=== PATIENT | male | born 1955 | race Caucasian/White ===

== ENCOUNTER → 2019-09-23 08:06 | Outpatient (POV) | payer BC, SELFPAY ==
[2019-09-23 08:36] VITALS: BP 135/88; PULSE 78; RESP 18; O2SAT 98; BMI 25.1
--- NOTE | 2019-09-23 09:04 | HMH.PMCON ---
Assessment and Plan (1) Postherpetic neuralgia Current visit: Yes Status: Chronic Category: Medical Code(s): B02.29 - Other postherpetic nervous system involvement (2) Postherpetic polyneuropathy Current visit: Yes Status: Acute Category: Medical Code(s): B02.23 - Postherpetic polyneuropathy - Assessment and plan all Dx Assessment and Plan for all problems:: We will stop the patient's gabapentin. We will start him on pregabalin 75 mg 1 tablet p.o. twice daily. We will also schedule him for a thoracic epidural at T4-T5. He is not on any anticoagulation therapy. We will see him back in the clinic after his injection to reassess his symptoms. He has been instructed to contact the clinic if he has any concerns before his next appointment. The patient and I specifically discussed risk factors for COVID19. These risks include, but are not limited to age greater than 60, heart or lung disease, diabetes, immunosuppression, and travel. We also discussed NSAIDs may worsen COVID19 infection or symptoms. Patient should not use NSAIDs to treat COVID19 signs or symptoms. Patient was also informed that any type of corticosteroid of any form (oral or injection) will decrease the patient's immune system response and may increase the likelihood of COVID19 infection and symptoms. Dr. Hensley has reviewed this note and agrees with this plan of care. This note was dictated using voice recognition software and make contain errors or omissions. HPI - Data of Consult Patient: new to practice Consult date: 09/23/19 Requesting Physician: Selena Gan APRN Primary Care Provider: Bill Henning MD - Consult Narrative Reason for consult: Postherpetic neuralgia, radicular pain History of present illness: Mr. Mclain is a 64 year old male presents today today for consultation for postsurgical pain and postherpetic neuralgia. Patient has had longstanding history of comorbidities. He does report to have a history of esophageal cancer for which he has been followed with [facility]. Patient did undergo surgical intervention at [facility] and he does report that postoperative he developed severe she for T5 and T6 pain on his right anterior chest wall. He says that approximately a month ago he developed severe pain on the left side in the same area. Patient did report to have had shingles at that time. Did complete his antiviral medication. He is currently on gabapentin 300 mg 1 tablet p.o. 4 times daily but he is unable to tolerate the medication. He says that it makes him confused and he does not like the way he feels when taking the medication. He is here today to discuss possible options for pain relief. CC: Selena Gan APRN [facility] History I have reviewed the patient's past medical history: Yes Medical History: Reports:: Diabetes Mellitus Type 2, Hyperlipidemia, Hypertension Denies:: Cancer, Diabetes Mellitus Type 1, Internal Pacemaker, Lung Disease, MRSA, Seizures *Have you ever received a pneumonia vaccine?: Yes *Have you received a flu vaccine this season?: Yes Other Medical History: Reports: Anemia, Arthritis Other Surgeries: Yes: Cholecystectomy. No: Pacemaker Amputation: No Fractures: No - *Social History Smoking Status: Never smoker Tobacco Type: cigarettes Alcohol Intake: never Alcohol Intake Frequency:: other Substance Use Type: denies use *Occupational Status:: other Housing: house Household Members: other *Travel in the last 8 weeks: None Family Hx:: Unable to obtain Review of Systems - Review of Systems Review of Systems General: No recent weight changes, no fever, no sleep disturbances Respiratory: No cough, no shortness of air, no recurring pulmonary infections Cardiovascular/peripheral vascular: No chest pain, no palpitations, no edema, no shortness of breath Gastrointestinal: No new onset incontinence, normal bowel movements reported Genitourinary: No new onset incontinence
== END ==
PROVIDERS: PCP Emergency Medicine; Visit Provider Clinical Nurse Specialist Family Health
DX: B02.23 Postherpetic polyneuropathy (principal)
CPT/HCPCS: 99202

== ENCOUNTER 2019-09-25 14:00 | Emergency (ER) | payer BC, SELFPAY ==
[2019-09-25] VITALS (8 sets, daily range): BP systolic 132–164; BP diastolic 85–101; PULSE 71–77; RESP 15–18; TEMP 36.7; O2SAT 97–99; BMI 24.3
[2019-09-25 14:35] LABS: POC Glucose,Bedside 161 (70-110)
--- NOTE | 2019-09-25 14:36 | ECG_ITS ---
APPROVED REPORT Exam: Resting ECG HR:70 bpm ECG Measurements Heart Rate 70 AXES SC 138 P 53 QRSd 84 QRS -17 QT 408 T 43 QTc 440 <Conclusion> Normal sinus rhythm Incomplete RBBB Leftward axis Abnormal ECG Electronically signed by : Yahir Joseph, 09/27/2019 09:10:34
--- NOTE | 2019-09-25 14:41 | HMH.EDGENADL ---
ED Disposition Clinical Impression: Brain metastasis, Esophageal adenocarcinoma Disposition: Xfer Short-Term Hosp Condition on Discharge: Fair Referrals: Bill Henning MD [Primary Care Provider] - - Critical Care Critical Care Time: Yes Attestation: On 09/25/19, the high probability of a clinically significant, sudden or life threatening deterioration of the following system(s) required my full and direct attention, intervention and personal management. The time I documented below is in addition to time spent performing reported procedures but includes the following listed in this critical care notation. Total Critical Care Time: 30 Vital system(s) involved:: Central Nervous System My critical care processes included: Assessment & monitoring of V/S, Initial and Re-exams, Data Review/Interpretation, Coordinating Care, Medication Orders and management, Documentation Medical Decision Making - Medical Records Medical records reviewed: Yes: I reviewed the patient's medical records. MR Comment: Reviewed records from [facility] on the portal. Had CT scan of chest and abdomen August 10 that were unremarkable. - Jose Inquiry Pt receiving controlled substance: No Vital Signs: 09/25/19 14:37 Pulse Rate [Radial] 72 Respiratory Rate 18 Blood Pressure [Right Arm] 154/92 H Blood Pressure Mean [Right Arm] 112 Blood Pressure Source [Right Arm] Automatic Cuff Blood Pressure Position [Right Arm] Supine 02 Sat by Pulse Oximetry 99 Oxygen Delivery Method Room Air - Lab Data Lab results reviewed: Yes: I reviewed the patient's lab results. Lab Results 09/25/19 14:33: POC Glucose 161 H 09/25/19 14:40: WBC 6.2, RBC 5.69, Hgb 15.1, Hct 44.2, MCV 77.7 L, MCH 26.6 L, MCHC 34.2, RDW 15.6, Plt Count 247, MPV 8.9, Neut % (Auto) 73.1, Lymph % (Auto) 14.1, [place] % (Auto) 11.7 H, Eos % (Auto) 0.7, Baso % (Auto) 0.4, Neut # (Auto) 4.6, Lymph # (Auto) 0.9, [place] # (Auto) 0.7, Eos # (Auto) 0.1, Baso # (Auto) 0.0, ESR 8 09/25/19 14:40: Sodium 133 L, Potassium 4.1, Chloride 92 L, Carbon Dioxide 29, Anion Gap 16.1 H, BUN 13, Creatinine 1.00, Estimated Creat Clear 80, Estimated GFR 75, Est GFR ( Amer) 91, Glucose 180 H, Calcium 10.2, Total Bilirubin 1.8 H, AST 37, ALT 42, Alkaline Phosphatase 98, Troponin I < 0.01, C-Reactive Protein 28.9 H, Total Protein 7.8, Albumin 4.6, Globulin 3.2, Albumin/Globulin Ratio 1.4 09/25/19 14:40: Lactate 1.5 09/25/19 15:25: Urine Color Yellow, Urine Appearance Clear, Urine pH 6.0, Ur Specific [place] 1.020, Urine Protein Negative, Urine Glucose (UA) Negative, Urine Ketones Negative, Urine Blood Negative, Urine Nitrate Negative, Urine Bilirubin Negative, Urine Urobilinogen 0.2, Ur Leukocyte Esterase Negative, Urine RBC Occasional, Urine WBC 3-5, Ur Squamous Epith Cells Occasional, Urine Bacteria None Result diagrams: 09/25/19 14:40 09/25/19 14:40 Orders (Tests/Meds): ED MEDICATIONS Generic Name Dose Route Start Last Admin Trade Name Freq PRN Reason Stop Dose Admin Pantoprazole Sodium 40 mg 09/25/19 17:02 Protonix 40mg Vial IV 09/25/19 17:03 ONCE ONE Sodium Chloride 10 ml 09/25/19 17:02 Sodium Chloride 0.9% 10ml Vial IV 10/25/19 17:01 NEEDED PRN dilute protonix Discontinued Medications Generic Name Dose Route Start Last Admin Trade Name Freq PRN Reason Stop Dose Admin Dexamethasone Sodium Phosphate 10 mg 09/25/19 15:26 09/25/19 16:09 Decadron 4mg/Ml 1ml Vial IV 09/25/19 15:27 10 mg ONCE ONE Administration Sodium Chloride 1,000 ml 09/25/19 15:01 09/25/19 15:06 Sod Chlor 0.9% 1000ml Bag IV 09/25/19 15:02 1,000 ml BOLUS ONE Administration ORDERS Category Date Time Status Troponin I Q3H Lab 09/25/19 17:45 Ordered Troponin I Q3H Lab 09/25/19 20:45 Ordered Blood Culture Stat Micro 09/25/19 14:40 Received - Radiology Data #1 Image(s): Chest Image Reviewed: Yes I have reviewed radiologist's interpretation PRO
--- NOTE | 2019-09-25 14:42 | XR_ITS ---
PROCEDURE: XR CHEST PORTABLE Patient Age:64Y CLINICAL HISTORY: Altered mental status & chest pains-history of esophageal cancer 2019 with surgery to reconstruct. Nonsmoker. Has had chemotherapy and radiation. At times has sharp pains in the chest COMPARISON: CT CHEST W CON from 10/16/2018 CT ABDOMEN W CON from 10/16/2018 FINDINGS: Single AP view chest Comparison is made to 10/16/2018 CT chest The rather dense appearance at mediastinum seen on this frontal projection. This of I suspect in part reflects postsurgical changes at the mediastinum from the esophagus surgery. There is a tortuous descending aorta as well as probable hiatal hernia adding to the generous density retrocardiac region as well. The hilar regions appear stable unchanged. The chest wall appears satisfactory. No pleural effusion. No pneumothorax. But no focal pneumonia The heart is normal in size and there is normal pulmonary vascularity. Minimal linear scarring is seen at the periphery of the right On close inspection there is a small nodular density projected over the left anterior 5th rib end-measuring 5.5 mm.. Small, unimpressive. Could be merely nipple shadow although slightly lateral for such. The prior CT chest from 2019 showed some nonspecific lung nodules and scattered vague densities but none specifically in this region. If there is no recent CT chest/abdomen, would suggest such with patient follow-up. I presume the patient has had subsequent scans and followed by oncologist elsewhere. IMPRESSION: 1..No acute cardiopulmonary findings. 2..However there are abnormalities: --diffuse dense appearance of the mediastinum-likely reflects the esophageal abnormalities, and esophageal surgery changes; along with likely hiatal hernia shadow retrocardiac region inferiorly.. However would benefit from follow-up CT scan if none recently obtained to exclude any additional process or adenopathy -5.5 mm nodular density projected over anterior 5th left rib end.. Nonspecific. Question possible nipple shadow. ---Would encourage follow-up CT chest, &abdomen/pelvis in this patient in view of above findings and given the numerous prior abnormalities seen on 2019 CT chest/abdomen studies. (I suspect patient followed by oncologist, with CT scans at another facility in the interval) Dictated by: Ian Gupta MD 09/25/2019 15:53 Electronically signed by Ian Gupta MD in [place] 09/25/2019 15:53
--- NOTE | 2019-09-25 14:53 | CT_ITS ---
PROCEDURE: CT HEAD/BRAIN WO CON Patient Age:64Y CLINICAL INDICATION: AMS mental status changes, history of esophageal cancer COMPARISON: CT HEAD/BRAIN W CON from 09/25/2019 TECHNIQUE: No IV contrast Non contrast standard axial images were obtained. All CT scans at the facility use one or more dose reduction, viz: automated exposure control, ma/kV adjustment per patient size (including targeted exams where dose is matched to indication, i.e. head), or iterative reconstruction technique. FINDINGS: . abnormal increased white matter edema throughout the posterior right cerebral hemisphere. There appears to be mass effect with compression and partial obliteration of the simple horn and sulci with what believe is compression upon the atria of the right lateral ventricle. Appearance suggest a large underlying mass at the right occipital region measuring at least 3 cm transverse times estimated 4.5 cm AP. Scattered lucent areas here may likely reflect associated areas of necrosis along the anterior aspect of the solid mass at right occipital lobe. Patient would benefit from a CT with contrast at this time and likely a follow-up MRI with contrast and subsequently . The posterior fossa appears satisfactory and unremarkable otherwise. The ventricles normal size but the right ventricle slightly larger than left but Skull intact-scattered I believe arachnoid granulations are noted.. Nomastoid effusions. Mastoid air cells are well developed and clear. Middle ear clear. IAC's symmetric. Nosinus air-fluid level. Visualized portions of the paranasal sinuses and orbits unremarkable. IMPRESSION: Large metastatic lesion right occipital lobe, with notable associated vasogenic edema tracking through white matter tracks throughout the right posterior cerebral hemisphere. Mass effect here at the right occipital lobe and adjacent structures . CT brain with contrast recommended to further evaluate and better define this right occipital mass lesion Dictated by: Ian Gupta MD 09/25/2019 16:42 Electronically signed by Ian Gupta MD in [place] 09/25/2019 16:42
--- NOTE | 2019-09-25 14:59 | PC.NURSE ---
Pt to CT
[2019-09-25 15:04] LABS: Basophils % 0.4 % (0.1-2.0); Eosinophils # 0.1 K/mm3 (0.0-0.4); Eosinophils % 0.7 % (0.1-12.0); Hematocrit 44.2 % (42.0-52.0); Hemoglobin 15.1 g/dL (14.1-18.0); Lymphocytes # 0.9 K/mm3 (0.7-4.5); Lymphocytes % 14.1 % (10-50); Mean Corpuscular HGB Conc 34.2 g/dL (31.8-35.4); Mean Corpuscular Hemoglobin 26.6 pg (27.0-31.2); Mean Corpuscular Volume 77.7 fl (80-94); Mean Platelet Volume 8.9 fl (7.4-10.4); Monocytes # 0.7 K/mm3 (0.1-1.0); Monocytes % 11.7 % (1.7-9.3); Neutrophils # 4.6 K/mm3 (1.8-7.8); Neutrophils % 73.1 % (37.0-80.0); Platelet Count 247 K/mm3 (142-424); Red Blood Count 5.69 M/mm3 (4.60-6.20); Red Cell Distribution Width 15.6 % (11.5-17.5); White Blood Count 6.2 K/mm3 (4.8-10.8)
[2019-09-25 15:06] LABS: Chloride 92 mmol/L (98-107)
[2019-09-25 15:07] LABS: Potassium 4.1 mmoL/L (3.5-5.1); Sodium 133 mmol/L (136-145)
[2019-09-25 15:09] LABS: Alanine Aminotransferase 42 U/L (12-78); Alkaline Phosphatase 98 U/L (38-126); Aspartate Amino Transferase 37 U/L (17-59); Bilirubin,Total 1.8 mg/dl (0.2-1.3); Blood Urea Nitrogen 13 mg/dl (9-20); Creatinine Clearance Estimated 80 mL/min (50-200); Estimated Glomerular Filt Rate 75 ml/min (>60); GFR (African American) 91 ML/MIN (>60)
[2019-09-25 15:10] LABS: Albumin Level 4.6 g/dl (3.5-5.0); Albumin/Globulin Ratio 1.4 (1.1-1.8); Anion Gap 16.1 mEq/L (5-15); Calcium 10.2 mg/dl (8.4-10.2); Carbon Dioxide 29 mmol/L (22.0-30.0); Globulin 3.2 g/dL (1.3-3.2); Glucose 180 mg/dl (74-100); Total Protein,Serum 7.8 g/dl (6.3-8.2)
[2019-09-25 15:11] LABS: Lactic Acid 1.5 mmol/L (0.7-2.1)
[2019-09-25 15:15] LABS: C-Reactive Protein 28.9 mg/L (0-4)
--- NOTE | 2019-09-25 15:15 | PC.NURSE ---
Addendum entered by Lissa Lake RN 09/25/19 17:31: correction returned from CT Original Note: Pt to CT
--- NOTE | 2019-09-25 15:23 | CT_ITS ---
PROCEDURE: CT HEAD/BRAIN W CON Patient Age:64Y CLINICAL INDICATION: metastatic cancer COMPARISON: CT HEAD/BRAIN WO CON from 09/25/2019 TECHNIQUE: IV Contrast: 100ML OPITRAY [address] head,, followed by standard axial CT head images were both obtained. All CT scans at the facility use one or more dose reduction, viz: automated exposure control, ma/kV adjustment per patient size (including targeted exams where dose is matched to indication, i.e. head), or iterative reconstruction technique. FINDINGS: The patient has known cancer. There is a large enhancing metastatic deposit at right occipital lobe. This is nicely seen on sagittal reconstruction image 44 in addition to the axial images. This lesion measures the 4.6 cm oblique AP x 2.5 cm vertical times 3.2 cm transverse. There are low-density areas throughout this lesion most evident towards its anterior aspect. These low-density areas likely reflect areas of necrosis Of the more solid enhancing components tender reside more posteriorly. Rather round and an enhancing primarily solid mass abuts the falx just above the tentorium Generous surrounding vasogenic edema-seen throughout the posterior right cerebral hemisphere. The associated vasogenic edema surrounds the bicipital mass lesion and radiates the extending from into the posterior temporal lobe white matter and posterior parietal lobe white matter. There is regional mass effect most evident the posterior right cerebral hemisphere compression and loss of the sulci throughout posterior right cerebral hemisphere. The mass effect markedly compresses and obliterates right occipital horn; and there is mild compression upon the atria of the right lateral ventricle.. Scant compression upon the right aspect of the quadrigeminal cistern No significant shift of midline at the level of basal ganglia or thalamus. Only question perhaps subtle 1 mm shift of midline to the left at these levels-equivocal-. May merely be normal variation No intracranial hemorrhage... No subdural or extra-axial fluid collection is evident. Posterior fossa unremarkable. Skull intact-. most likely scattered arachnoid granulations accounting for scattered lucent foci along inner table of skull. Nomastoid effusions. Mastoid air cells are well developed and clear. Middle ear clear. IAC's symmetric. Visualized portions of the paranasal sinuses and orbits unremarkable. IMPRESSION: . Large enhancing metastatic lesion right occipital region measure over 4.6 cm x 3.5 cm transverse. Multiple areas of necrosis within this otherwise enhancing solid lesion. No hemorrhage . Regional mass effect with vasogenic edema surrounding lesion: Vasogenic white matter edema extends into posterior temporal and posterior parietal regions. The lesion and associated edema result in moderate mass effect throughout posterior right hemisphere.-which compresses/obliterates right occipital horn along and yields loss of sulci throughout posterior right cerebral hemisphere. (No significant midline shift more anteriorly. Perhaps only 1 mm shift to the left at the level of basal ganglia and thalamus) Dictated by: Ian Gupta MD 09/25/2019 16:33 Electronically signed by Ian Gupta MD in [place] 09/25/2019 16:33
[2019-09-25 15:26] LABS: Troponin I < 0.01 ng/ml (0.00-0.034)
[2019-09-25 15:28] LABS: Erythrocyte Sedimentation Rate 8 mm/hr (0-20)
[2019-09-25 15:35] LABS: Appearance,Urine CLEAR (Clear); Bilirubin,Urine Negative (Negative); Blood, Urine Negative (Negative); Color,Urine YELLOW (Yellow); Glucose,Urine (UA) Negative (Negative); Ketones,Urine Negative (Negative); Leukocyte Esterase,Urine Negative (Negative); Microscopic, Urine URINE MICROSCOPIC (MICROSCOPIC); Nitrate,Urine Negative (Negative); Protein,Urine Negative (Negative); Urobilinogen,Urine 0.2 EU/dl (0.2)
--- NOTE | 2019-09-25 15:35 | PC.NURSE ---
speaking to Dr Gupta r/t CT findings recommends CT head with contrast
[2019-09-25 15:40] LABS: RBC,Urine Occasional #/hpf (0-3); Squamous Epithelial Cell,Urine Occasional #/hpf (0-5)
--- NOTE | 2019-09-25 15:50 | PC.NURSE ---
Pt to CT again
--- NOTE | 2019-09-25 16:20 | PC.NURSE ---
Pt returned from CT
--- NOTE | 2019-09-25 16:49 | PC.NURSE ---
and pt speaking with dr Avalos related to CT scan.
--- NOTE | 2019-09-25 16:50 | PC.NURSE ---
Addendum entered by Lissa Lake RN 09/25/19 16:53: From MDs Original Note: speaking to Dr Wood
--- NOTE | 2019-09-25 16:54 | PC.NURSE ---
Dr Wood stated he wished pt to be transfered to , MD speaking to family now
--- NOTE | 2019-09-25 16:58 | PC.NURSE ---
speaking to the Neuro surgeon at
--- NOTE | 2019-09-25 17:00 | PC.NURSE ---
Dr De La O accepted transfer, states to call ED and will be an ED to ED transport
--- NOTE | 2019-09-25 17:04 | PC.NURSE ---
Report given to Chantell Choi RN at ED
--- NOTE | 2019-09-25 17:07 | PC.NURSE ---
[facility] notified of pt transfer stated they must wait until the ALS truck is [place] in the [place].
--- NOTE | 2019-09-25 22:57 | PC.NURSE ---
called and asked what meds patient was given while he was here.
== END 2019-09-25 18:21 | disposition short-term general hospital (02) ==
LOC: ER 14:04 → UTC 14:07 → ER 14:36
PROVIDERS: Nurse Practitioner; Emergency Provider Emergency Medicine; PCP Emergency Medicine
DX: C15.9 Malignant neoplasm of esophagus, unspecified (principal); C79.31 Secondary malignant neoplasm of brain; E78.5 Hyperlipidemia, unspecified; I10 Essential (primary) hypertension; E11.9 Type 2 diabetes mellitus without complications; Z90.49 Acquired absence of other specified parts of digestive tract; Z79.899 Other long term (current) drug therapy
CPT/HCPCS: 70450; 70460; 71045; 80053; 81001; 82962; 83605; 84484; 85025; 85651; 86140; 87040; 93005; 96365; 96375; 99284; 99285; J2405; Q9967

== ENCOUNTER 2019-10-23 14:19 | Emergency (ER) | payer BC, MEDICARE, SELFPAY ==
[2019-10-23 14:28] VITALS: BP 126/82; PULSE 78; RESP 16; TEMP 36.8; O2SAT 98; BMI 25.1
--- NOTE | 2019-10-23 14:35 | ECG_ITS ---
APPROVED REPORT Exam: Resting ECG HR:77 bpm ECG Measurements Heart Rate 77 AXES IN 126 P 34 QRSd 74 QRS -12 QT 388 T 46 QTc 439 <Conclusion> Normal sinus rhythm Normal ECG Electronically signed by : Bernabe Espinoza, 10/24/2019 06:03:30
--- NOTE | 2019-10-23 14:46 | XR_ITS ---
PROCEDURE: XR CHEST 2V CLINICAL HISTORY: SOA Shortness of air, soft Jewel cancer COMPARISON: CT CT CHEST W CON from 10/16/2018 FINDINGS: Normal heart size. Moderate-sized hiatal hernia is present. There is some mild mediastinal widening which is shown improvement compared to previous CT scan of 10/16/2018.. Postsurgical changes in the midlung on the right. There is some faint nodularity noted in the right lower lung zone and may be due to vascular and rib overlap. Cannot exclude developing nodule. Left lung is clear. No acute bony findings. No acute bony abnormalities. IMPRESSION: Postsurgical changes with nodular density overlying the right lower lobe which could be due to summation artifact or developing nodule. Chest CT may provide further evaluation. Dictated by: Ramin Chowdhury MD 10/23/2019 22:14 Ramin Chowdhury MD in [place] 10/23/2019 22:14
[2019-10-23 14:52] LABS: Basophils % 0.8 % (0.1-2.0); Eosinophils # 0.1 K/mm3 (0.0-0.4); Eosinophils % 3.6 % (0.1-12.0); Hematocrit 30.5 % (42.0-52.0); Hemoglobin 9.8 g/dL (14.1-18.0); Lymphocytes # 0.5 K/mm3 (0.7-4.5); Lymphocytes % 12.5 % (10-50); Mean Corpuscular Hemoglobin 26.8 pg (27.0-31.2); Mean Corpuscular Volume 83.7 fl (80-94); Mean Platelet Volume 9.3 fl (7.4-10.4); Monocytes # 0.2 K/mm3 (0.1-1.0); Monocytes % 6.4 % (1.7-9.3); Neutrophils # 2.7 K/mm3 (1.8-7.8); Neutrophils % 76.7 % (37.0-80.0); Platelet Count 159 K/mm3 (142-424); Red Blood Count 3.65 M/mm3 (4.60-6.20); Red Cell Distribution Width 18.1 % (11.5-17.5); White Blood Count 3.6 K/mm3 (4.8-10.8)
[2019-10-23 14:57] LABS: Alanine Aminotransferase 107 U/L (12-78); Albumin Level 3.4 g/dl (3.5-5.0); Albumin/Globulin Ratio 1.4 (1.1-1.8); Alkaline Phosphatase 117 U/L (38-126); Anion Gap 9.7 mEq/L (5-15); Aspartate Amino Transferase 73 U/L (17-59); Bilirubin,Total 0.5 mg/dl (0.2-1.3); Blood Urea Nitrogen 16 mg/dl (9-20); Calcium 8.7 mg/dl (8.4-10.2); Carbon Dioxide 30 mmol/L (22.0-30.0); Chloride 101 mmol/L (98-107); Creatinine Clearance Estimated 83 mL/min (50-200); Estimated Glomerular Filt Rate 113 ml/min (>60); GFR (African American) 137 ML/MIN (>60); Globulin 2.5 g/dL (1.3-3.2); Glucose 178 mg/dl (74-100); Potassium 3.7 mmoL/L (3.5-5.1); Sodium 137 mmol/L (136-145); Total Protein,Serum 5.9 g/dl (6.3-8.2)
[2019-10-23 15:07] LABS: NT Pro Brain Natriuretic Pep. 433 pg/mL (0-125)
[2019-10-23 15:09] LABS: D-Dimer 0.59 ug/mL (0.15-8.0)
[2019-10-23 15:20] VITALS: BP 109/75; PULSE 76; O2SAT 97
[2019-10-23 16:11] VITALS: BP 111/74; PULSE 74; O2SAT 97
--- NOTE | 2019-10-23 16:22 | HMH.EDGENADL ---
ED Disposition Clinical Impression: Swelling of lower extremity, Nutritional deficiency, Steroid long-term use, Orthopnea Disposition: Home, Self-Care Condition on Discharge: Fair Instructions: DI for Dependent Edema, DI for Peripheral Edema -- Bilateral Additional Instructions: You have been evaluated for lower extremity swelling. Please walk for exercise, use compression and elevate your legs when resting. Continue steroid taper. Use nutritional supplementation like boost. Follow-up with your primary care doctor in 1 to 2 days for symptom recheck. Return to the emergency department for any new or worsening symptoms. Referrals: Bill Henning MD [Primary Care Provider] - Time of Disposition: 16:43 - Critical Care Critical Care Time: No Attestation: On 10/23/19, the high probability of a clinically significant, sudden or life threatening deterioration of the following system(s) required my full and direct attention, intervention and personal management. The time I documented below is in addition to time spent performing reported procedures but includes the following listed in this critical care notation. Medical Decision Making - Medical Records Medical records reviewed: Yes: I reviewed the patient's medical records. - Jose Inquiry Pt receiving controlled substance: No Vital Signs: 10/23/19 14:28 10/23/19 15:20 10/23/19 16:11 Temperature 98.2 F Temperature Source Oral Pulse Rate Pulse Rate [Right] 78 76 74 Respiratory Rate 16 Blood Pressure Blood Pressure [Right Arm] 126/82 109/75 L 111/74 Blood Pressure Mean [Right Arm] 96 86 86 Blood Pressure Source Blood Pressure Source [Right Arm] Automatic Cuff Automatic Cuff Automatic Cuff Blood Pressure Position Blood Pressure Position [Right Arm] Sitting Supine Supine 02 Sat by Pulse Oximetry 98 97 97 Oxygen Delivery Method Room Air Room Air Room Air 10/23/19 16:56 Temperature 98.2 F Temperature Source Oral Pulse Rate 78 Pulse Rate [Right] Respiratory Rate 16 Blood Pressure 110/62 Blood Pressure [Right Arm] Blood Pressure Mean [Right Arm] Blood Pressure Source Automatic Cuff Blood Pressure Source [Right Arm] Blood Pressure Position Sitting Blood Pressure Position [Right Arm] 02 Sat by Pulse Oximetry Oxygen Delivery Method Room Air - Lab Data Lab Results 10/23/19 14:30: WBC 3.6 L, RBC 3.65 L, Hgb 9.8 L, Hct 30.5 L, MCV 83.7, MCH 26.8 L, MCHC 32.0, RDW 18.1 H, Plt Count 159, MPV 9.3, Neut % (Auto) 76.7, Lymph % (Auto) 12.5, [place] % (Auto) 6.4, Eos % (Auto) 3.6, Baso % (Auto) 0.8, Neut # (Auto) 2.7, Lymph # (Auto) 0.5 L, [place] # (Auto) 0.2, Eos # (Auto) 0.1, Baso # (Auto) 0.0 10/23/19 14:30: Sodium 137, Potassium 3.7, Chloride 101, Carbon Dioxide 30, Anion Gap 9.7, BUN 16, Creatinine 0.70, Estimated Creat Clear 83, Estimated GFR 113, Est GFR ( Amer) 137, Glucose 178 H, Calcium 8.7, Total Bilirubin 0.5, AST 73 H, ALT 107 H, Alkaline Phosphatase 117, NT-Pro-B Natriuret Pep 433 H, Total Protein 5.9 L, Albumin 3.4 L, Globulin 2.5, Albumin/Globulin Ratio 1.4 10/23/19 14:30: D-Dimer 0.59 Result diagrams: 10/23/19 14:30 10/23/19 14:30 Orders (Tests/Meds): ORDERS Category Date Time Status Chest XR 2 view (NOT portable) [XR chest 2V] Stat Exams 10/23/19 14:46 Taken Medical Decision Narrative: In summary this is a 64-year-old male on daily steroids after brain tumor resection presenting to the emergency department with dyspnea and lower extremity swelling. Patient is clinically stable on arrival. Oxygen saturations are appropriate on room air. Concern for steroid reaction, acute renal failure, fluid overload, CHF. Cannot exclude PE, given recent postop. Will obtain CBC, CMP, chest x-ray, EKG, BNP, d-dimer. Initial laboratory results are generally unremarkable. Slight anemia. Renal function adequate with creatinine of 0.70. BNP at 400, slightly elevated. D-dimer within normal limits. Doubt that this is DVT o
[2019-10-23 16:56] VITALS: BP 110/62; PULSE 78; RESP 16; TEMP 36.8; O2SAT 98
== END 2019-10-23 16:57 | disposition home or self-care (01) ==
PROVIDERS: Emergency Provider Emergency Medicine; PCP Emergency Medicine
DX: R06.01 Orthopnea (principal); C15.9 Malignant neoplasm of esophagus, unspecified; C79.31 Secondary malignant neoplasm of brain; E11.65 Type 2 diabetes mellitus with hyperglycemia; Z79.52 Long term (current) use of systemic steroids; E63.9 Nutritional deficiency, unspecified; E78.5 Hyperlipidemia, unspecified; I10 Essential (primary) hypertension; Z79.899 Other long term (current) drug therapy; Z79.4 Long term (current) use of insulin
CPT/HCPCS: 71046; 80053; 83880; 85025; 85378; 93005; 99284

== ENCOUNTER 2019-12-31 02:58 | Emergency (ER) | payer BC, MEDICARE, SELFPAY ==
[2019-12-31] VITALS (7 sets, daily range): BP systolic 129–157; BP diastolic 87–97; PULSE 82–91; RESP 16–20; TEMP 36.4; O2SAT 93–99; BMI 25.9
--- NOTE | 2019-12-31 03:40 | CT_ITS ---
PROCEDURE: CT ABDOMEN PELVIS WO CON CLINICAL INDICATION: flank pain Left flank pain COMPARISON: CT CT ABDOMEN W CON from 10/16/2018 TECHNIQUE: Axial images obtained with sagittal and coronal reformats. All CT scans at the facility use one or more dose reduction, viz: automated exposure control, ma/kV adjustment per patient size (including targeted exams where dose is matched to indication, i.e. head), or iterative reconstruction technique. FINDINGS: LOWER THORAX: There is a large hiatal hernia. There is trace right-sided effusion ABDOMEN & PELVIS: Prior cholecystectomy. The liver, spleen, adrenal glands, pancreas have an unremarkable appearance. There are punctate bilateral renal calculi. There is a 7 mm stone within the mid aspect of the left ureter at the L4 level causing mild left hydronephrosis and proximal hydroureter with minimal stranding of the left perinephric and periureteral fat. Faint increased density is present within the central mesenteric fat with scattered small mesenteric lymph nodes. Unremarkable appendix. No intestinal obstruction or free air. There is mild nonspecific thickening of the descending and sigmoid colon as well as the transverse colon which may be due to nondistention versus colitis. There are scattered colonic diverticula but no evidence of diverticulitis. There is mild degenerative disc disease in the lower thoracic spine and at the L5-S1 level. IMPRESSION: 1. 7 mm left mid ureteral stone with mild left hydroureteronephrosis. 2. Bilateral nephrolithiasis 3. Nonspecific thickening of the colon which could be due to nondistention or colitis. 4. Moderate-sized hiatal hernia with trace right-sided pleural effusion Dictated by: Ramin Chowdhury MD 12/31/2019 06:26 Ramin Chowdhury MD in [place] 12/31/2019 06:26
[2019-12-31 03:49] LABS: Basophils % 0.6 % (0.1-2.0); Eosinophils # 0.1 K/mm3 (0.0-0.4); Eosinophils % 1.8 % (0.1-12.0); Hematocrit 34.3 % (42.0-52.0); Hemoglobin 9.4 g/dL (14.1-18.0); Lymphocytes # 0.6 K/mm3 (0.7-4.5); Lymphocytes % 11.8 % (10-50); Mean Corpuscular HGB Conc 27.4 g/dL (31.8-35.4); Mean Corpuscular Hemoglobin 19.2 pg (27.0-31.2); Mean Corpuscular Volume 69.9 fl (80-94); Mean Platelet Volume 8.8 fl (7.4-10.4); Monocytes # 0.4 K/mm3 (0.1-1.0); Monocytes % 7.3 % (1.7-9.3); Neutrophils # 4.1 K/mm3 (1.8-7.8); Neutrophils % 78.6 % (37.0-80.0); Platelet Count 187 K/mm3 (142-424); Red Blood Count 4.91 M/mm3 (4.60-6.20); Red Cell Distribution Width 20.1 % (11.5-17.5); White Blood Count 5.3 K/mm3 (4.8-10.8)
[2019-12-31 03:58] LABS: Chloride 105 mmol/L (98-107)
[2019-12-31 03:59] LABS: Potassium 3.7 mmoL/L (3.5-5.1); Sodium 142 mmol/L (136-145)
[2019-12-31 04:01] LABS: Alanine Aminotransferase 32 U/L (12-78); Alkaline Phosphatase 85 U/L (38-126); Aspartate Amino Transferase 60 U/L (17-59); Bilirubin,Total 0.8 mg/dl (0.2-1.3); Blood Urea Nitrogen 9 mg/dl (9-20); Creatinine Clearance Estimated 71 mL/min (50-200); Estimated Glomerular Filt Rate 61 ml/min (>60); GFR (African American) 74 ML/MIN (>60)
[2019-12-31 04:02] LABS: Albumin Level 4.8 g/dl (3.5-5.0); Albumin/Globulin Ratio 1.7 (1.1-1.8); Anion Gap 16.7 mEq/L (5-15); Calcium 9.2 mg/dl (8.4-10.2); Carbon Dioxide 24 mmol/L (22.0-30.0); Globulin 2.8 g/dL (1.3-3.2); Glucose 237 mg/dl (74-100); Total Protein,Serum 7.6 g/dl (6.3-8.2)
[2019-12-31 04:31] LABS: Microscopic, Urine URINE MICROSCOPIC (MICROSCOPIC)
[2019-12-31 04:33] LABS: Appearance,Urine CLEAR (Clear); Bilirubin,Urine Negative (Negative); Blood, Urine 3+ (Negative); Color,Urine YELLOW (Yellow); Glucose,Urine (UA) 1+ (Negative); Ketones,Urine Negative (Negative); Leukocyte Esterase,Urine Negative (Negative); Nitrate,Urine Negative (Negative); PH,Urine 6.5 (5.0-8.5); Protein,Urine Negative (Negative); Urobilinogen,Urine 0.2 EU/dl (0.2)
[2019-12-31 04:34] LABS: Coronavirus 19 IgG Antibody Negative (Negative); Coronavirus 19 IgM Antibody Negative (Negative)
[2019-12-31 04:37] LABS: Bacteria,Urine Trace /lpf; RBC,Urine 20-50 #/hpf (0-3); WBC,Urine Occasional #/hpf (0-3)
--- NOTE | 2019-12-31 05:14 | HMH.EDGENADL ---
ED Disposition Clinical Impression: Renal colic on left side, Elevated glucose Anemia Qualifiers: Anemia type: unspecified type Qualified Code(s): D64.9 - Anemia, unspecified Disposition: Home, Self-Care Condition on Discharge: Good Instructions: DI for Kidney Stones Additional Instructions: call dr akers and pcp for follow up Prescriptions: Tamsulosin HCl [Flomax 0.4mg capsule] 0.4 mg PO HS #10 cap Transmission Status: Pending to [id number] Referrals: Diego Worthy MD [Primary Care Provider] - Marcellus Akers MD [Staff Physician] - - Critical Care Critical Care Time: No Attestation: On 12/31/19, the high probability of a clinically significant, sudden or life threatening deterioration of the following system(s) required my full and direct attention, intervention and personal management. The time I documented below is in addition to time spent performing reported procedures but includes the following listed in this critical care notation. Medical Decision Making - Medical Records Medical records reviewed: Yes: I reviewed the patient's medical records. - Jose Inquiry Pt receiving controlled substance: No Vital Signs: 12/31/19 02:59 12/31/19 03:29 12/31/19 04:00 Temperature 97.5 F L Temperature Source Oral Pulse Rate [Left Radial] 91 H 91 H 88 Respiratory Rate 20 18 18 Blood Pressure [Right Arm] 156/93 H 151/90 H 142/90 H Blood Pressure Mean [Right Arm] 114 110 107 Blood Pressure Source [Right Arm] Automatic Cuff Blood Pressure Position [Right Arm] Supine 02 Sat by Pulse Oximetry 99 98 97 Oxygen Delivery Method Room Air Room Air Room Air 12/31/19 04:30 12/31/19 05:42 12/31/19 06:30 Temperature Temperature Source Pulse Rate [Left Radial] 88 84 84 Respiratory Rate 19 18 16 Blood Pressure [Right Arm] 157/97 H 129/87 137/87 Blood Pressure Mean [Right Arm] 117 101 103 Blood Pressure Source [Right Arm] Automatic Cuff Blood Pressure Position [Right Arm] Supine 02 Sat by Pulse Oximetry 97 95 93 L Oxygen Delivery Method Room Air Room Air Room Air - Lab Data Lab results reviewed: Yes: I reviewed the patient's lab results. Lab Results 12/31/19 03:20: WBC 5.3, RBC 4.91, Hgb 9.4 L, Hct 34.3 L, MCV 69.9 L, MCH 19.2 L, MCHC 27.4 L, RDW 20.1 H, Plt Count 187, MPV 8.8, Neut % (Auto) 78.6, Lymph % (Auto) 11.8, [place] % (Auto) 7.3, Eos % (Auto) 1.8, Baso % (Auto) 0.6, Neut # (Auto) 4.1, Lymph # (Auto) 0.6 L, [place] # (Auto) 0.4, Eos # (Auto) 0.1, Baso # (Auto) 0.0 12/31/19 03:20: Sodium 142, Potassium 3.7, Chloride 105, Carbon Dioxide 24, Anion Gap 16.7 H, BUN 9, Creatinine 1.20, Estimated Creat Clear 71, Estimated GFR 61, Est GFR ( Amer) 74, Glucose 237 H, Calcium 9.2, Total Bilirubin 0.8, AST 60 H, ALT 32, Alkaline Phosphatase 85, Total Protein 7.6 D, Albumin 4.8, Globulin 2.8, Albumin/Globulin Ratio 1.7 12/31/19 03:20: SARS-CoV-2 IgG Ab (Rapid) Negative, SARS-CoV-2 IgM Ab (Rapid) Negative 12/31/19 03:56: Urine Color Yellow, Urine Appearance Clear, Urine pH 6.5, Ur Specific [place] 1.020, Urine Protein Negative, Urine Glucose (UA) 1+, Urine Ketones Negative, Urine Blood 3+, Urine Nitrate Negative, Urine Bilirubin Negative, Urine Urobilinogen 0.2, Ur Leukocyte Esterase Negative, Urine RBC 20-50, Urine WBC Occasional, Urine Bacteria Trace Result diagrams: 12/31/19 03:20 12/31/19 03:20 Orders (Tests/Meds): ED MEDICATIONS Generic Name Dose Route Start Last Admin Trade Name Freq PRN Reason Stop Dose Admin Sodium Chloride 1,000 mls @ 999 mls/hr 12/31/19 03:45 12/31/19 04:23 Sod Chlor 0.9% 1000ml Bag IV 12/31/19 04:45 999 mls/hr .[id number] SERENITY Administration Tamsulosin HCl 0.4 mg 12/31/19 04:20 12/31/19 04:21 Tamsulosin 0.4mg Capsule PO 01/30/20 04:19 0.4 mg HS SERENITY Administration Discontinued Medications Generic Name Dose Route Start Last Admin Trade Name Freq PRN Reason Stop Dose Admin Hydromorphone HCl 1 mg 12/31/19 06:00 12/31/19 06:0
== END 2019-12-31 07:05 | disposition home or self-care (01) ==
PROVIDERS: Emergency Provider Emergency Medicine; PCP Family Medicine
DX: N20.1 Calculus of ureter (principal); E11.65 Type 2 diabetes mellitus with hyperglycemia; I10 Essential (primary) hypertension; C15.9 Malignant neoplasm of esophagus, unspecified; C79.31 Secondary malignant neoplasm of brain; Z01.84 Encounter for antibody response examination; E78.5 Hyperlipidemia, unspecified; Z79.899 Other long term (current) drug therapy
CPT/HCPCS: 74176; 80053; 81001; 85025; 86328; 96365; 96375; 99284; J2405

== ENCOUNTER → 2020-01-07 16:49 | Outpatient (CLI) | payer BC, MEDICARE, SELFPAY ==
--- NOTE | 2020-01-07 16:54 | XR_ITS ---
PROCEDURE: XR KUB CLINICAL INDICATION: URETERAL STONE Nephrolithiasis COMPARISON: CT CT ABDOMEN PELVIS WO CON from 12/31/2019 FINDINGS: 2 mm stone is present in the mid polar region of the right kidney. There is a a 7 mm stone overlying the left L4 transverse process suggesting a ureteral calculus. IMPRESSION: 7 mm left mid ureteral stone and right nephrolithiasis Dictated by: Ramin Chowdhury MD 01/07/2020 18:22 Ramin Chowdhury MD in [place] 01/07/2020 18:22
== END ==
PROVIDERS: PCP Family Medicine; Visit Provider Urology
DX: N20.1 Calculus of ureter (principal)
CPT/HCPCS: 74018

== ENCOUNTER → 2020-01-14 13:54 | Outpatient (CLI) | payer BC, MEDICARE, SELFPAY ==
--- NOTE | 2020-01-14 13:59 | CA_ITS ---
APPROVED REPORT Bilateral Lower Extremity Venous Study for Ammonia Worker: MARY Indications Lower Extremity Pain: Lower Extremity Edema: bilateral pain and swelling, cancer patient Risk Factors Malignancy Vein Imaging CFV (R): compressive, spontaneous, phasic, augmentation SFJ (R): compressive, spontaneous, phasic, augmentation FEM (R): compressive, spontaneous, phasic, augmentation POP (R): compressive, spontaneous, phasic, augmentation DFV (R): compressive, spontaneous, phasic, augmentation PTV (R): Compressible GSV (R): Compressible Peroneals (R):Not Visualized GAS (R): Compressible CFV (L): compressive, spontaneous, phasic, augmentation SFJ (L): compressive, spontaneous, phasic, augmentation FEM (L): compressive, spontaneous, phasic, augmentation POP (L): compressive, spontaneous, phasic, augmentation DFV (L): compressive, spontaneous, phasic, augmentation PTV (L): Compressible GSV (L): Compressible Peroneals (L):Not Visualized GAS (L): Compressible Findings No evidence of DVT or superficial thrombophlebitis in the veins scanned of the right lower extremity. No evidence of DVT or superficial thrombophlebitis in the veins scanned of the left lower extremity. Bilateral edema Conclusion No evidence of DVT or superficial thrombophlebitis in the veins scanned of the right lower extremity. No evidence of DVT or superficial thrombophlebitis in the veins scanned of the left lower extremity. Bilateral edema Electronically signed by : Ramin Chowdhury MD 01/14/2020 14:58:20
[2020-01-14 15:00] LABS: Basophils % 0.9 % (0.1-2.0); Eosinophils # 0.1 K/mm3 (0.0-0.4); Eosinophils % 3.4 % (0.1-12.0); Hematocrit 38.2 % (42.0-52.0); Hemoglobin 9.8 g/dL (14.1-18.0); Lymphocytes # 1.2 K/mm3 (0.7-4.5); Lymphocytes % 28.4 % (10-50); Mean Corpuscular HGB Conc 25.8 g/dL (31.8-35.4); Mean Corpuscular Hemoglobin 18.7 pg (27.0-31.2); Mean Corpuscular Volume 72.5 fl (80-94); Mean Platelet Volume 8.9 fl (7.4-10.4); Monocytes # 0.3 K/mm3 (0.1-1.0); Monocytes % 6.4 % (1.7-9.3); Neutrophils # 2.6 K/mm3 (1.8-7.8); Platelet Count 327 K/mm3 (142-424); Red Blood Count 5.26 M/mm3 (4.60-6.20); Red Cell Distribution Width 21.1 % (11.5-17.5); White Blood Count 4.2 K/mm3 (4.8-10.8)
[2020-01-14 17:20] LABS: Iron 333 ug/dL (49-181); Total Iron Binding Capacity 541 ug/dL (261-462)
== END ==
PROVIDERS: PCP Family Medicine; Visit Provider Family Medicine
DX: M79.605 Pain in left leg (principal); M79.604 Pain in right leg; M79.89 Other specified soft tissue disorders; D64.9 Anemia, unspecified
CPT/HCPCS: 36415; 83540; 83550; 85025; 93970

== ENCOUNTER → 2020-01-19 17:34 | Outpatient (CLI) | payer BC, MEDICARE, SELFPAY ==
[2020-01-19 17:58] LABS: Basophils # 0.1 K/mm3 (0-0.2); Basophils % 0.7 % (0.1-2.0); Eosinophils # 0.1 K/mm3 (0.0-0.4); Hematocrit 37.8 % (42.0-52.0); Hemoglobin 10.8 g/dL (14.1-18.0); Lymphocytes # 0.9 K/mm3 (0.7-4.5); Lymphocytes % 12.7 % (10-50); Mean Corpuscular HGB Conc 28.5 g/dL (31.8-35.4); Mean Corpuscular Hemoglobin 20.2 pg (27.0-31.2); Mean Corpuscular Volume 70.7 fl (80-94); Mean Platelet Volume 8.2 fl (7.4-10.4); Monocytes # 0.5 K/mm3 (0.1-1.0); Monocytes % 6.7 % (1.7-9.3); Neutrophils # 5.6 K/mm3 (1.8-7.8); Platelet Count 302 K/mm3 (142-424); Red Blood Count 5.36 M/mm3 (4.60-6.20); Red Cell Distribution Width 22.6 % (11.5-17.5); White Blood Count 7.1 K/mm3 (4.8-10.8)
[2020-01-19 19:08] LABS: Coronavirus 19 IgG Antibody Positive (Negative); Coronavirus 19 IgM Antibody Negative (Negative)
[2020-01-19 20:42] LABS: Chloride 102 mmol/L (98-107)
[2020-01-19 20:43] LABS: Potassium 4.2 mmoL/L (3.5-5.1); Sodium 141 mmol/L (136-145)
[2020-01-19 20:45] LABS: Blood Urea Nitrogen 10 mg/dl (9-20); Estimated Glomerular Filt Rate 61 ml/min (>60); GFR (African American) 74 ML/MIN (>60)
[2020-01-19 20:46] LABS: Anion Gap 13.2 mEq/L (5-15); Carbon Dioxide 30 mmol/L (22.0-30.0); Glucose 124 mg/dl (74-100)
== END ==
PROVIDERS: Visit Provider Urology
DX: Z01.818 Encounter for other preprocedural examination (principal); N20.1 Calculus of ureter
CPT/HCPCS: 36415; 80048; 85025; 86328

== ENCOUNTER 2020-01-20 10:00 | Day surgery (SDC) | payer BC, MEDICARE, SELFPAY ==
[2020-01-18 15:15] VITALS: BMI 26.1
[2020-01-20] VITALS (10 sets, daily range): BP systolic 138–166; BP diastolic 76–93; PULSE 60–70; RESP 13–25; TEMP 36.5–37; O2SAT 93–98
[2020-01-20 10:38] LABS: POC Glucose,Bedside 143 (70-110)
--- NOTE | 2020-01-20 14:01 | P.PN_ITS ---
[facility] Anesthesia Checklist - Patient Identification Patient Identification: Arm Band, Verbal (Name & ) - Structural Data Admitted From: Home Planned Operative Procedure/s: cysto Consent for Planned Operative Procedure(s) Verified: Yes Verified Documents: History and Physical - NPO Status Verified Time NPO: 00:00 - Additional verifications Patient : No Anesthesia Reactions: No Hx Blood Transfusions: No Blood Transfusion Reaction: No Cephalosporin Allergy: No Previous Colonoscopy: Yes - Cardiovascular Assessment Heart Sounds: S1 & S2 Pulse Strength: Baseline Pulse Rhythm: Regular Peripheral Edema: No - Airway Assessment C-Spine Mobility Assessed: Yes TMJ Mobility Assessed: Yes Dentition: Good Dentition - Neurological Assessment Level of Consciousness: Awake, Alert, Appropriate Hx Seizures: No Numbness or tingling in extremities: No - Anesthesia Plan Anesthesia Risk discussed: Yes Anesthesia Plan: Verified ASA Class: III Anesthesia Type: General [facility] History I have reviewed the patient's past medical history: Yes Medical History: Reports:: Cancer (prostate, esophageal, brain tumor), Diabetes Mellitus Type 2, Hyperlipidemia, Hypertension, Kidney Stones Denies:: Diabetes Mellitus Type 1, Internal Pacemaker, Lung Disease, MRSA, Seizures *Have you ever received a pneumonia vaccine?: Yes *Have you received a flu vaccine this season?: Yes Other Medical History: Reports: Anemia, Arthritis. Denies: Blood Transfusion Reaction Anesthesia experience/problems:: none Other Surgeries: Yes: No Previous Surgery, Cancer Surgery, Cholecystectomy, Colonoscopy. No: Pacemaker Amputation: No Fractures: No - *Social History Last grade of school completed: Advanced degree Smoking Status: Never smoker Tobacco Type: cigarettes Alcohol Intake: never Alcohol Intake Frequency:: other Substance Use Type: denies use *Occupational Status:: employed Housing: house Household Members: spouse, family *Travel in the last 8 weeks: None Family Hx:: Unable to obtain
--- NOTE | 2020-01-20 14:02 | P.PN_ITS ---
[facility] Anesthesia Record Part I Intake, IV Amount: 900 Estimated blood loss (mL): 0 Urine output (mL): 0 Blood Products used (#): none Blood Pressure: 152/92 SaO2: 94 Pulse Rate: 68 Respiratory Rate: 20 Temperature: 98.0 F Patient is:: Awake, Stable Stable to PACU at:: 13:57
--- NOTE | 2020-01-20 14:09 | FL_ITS ---
PROCEDURE: FLUORO UP TO 1 HOUR CLINICAL INDICATION: STENT PLACEMENT, URETOROSCOPY COMPARISON: No exams were available for comparison FINDINGS: Fluoroscopy time: 3.5 minutes There are 2 images submitted with the C-arm showing a left ureteral stent in place 1 overlying the left upper quadrant and 1 overlying the lower pelvic region. IMPRESSION: Status post left ureteral stent placement with fluoro guidance. Dictated by: Ramin Chowdhury MD 01/20/2020 16:52 Ramin Chowdhury MD in [place] 01/20/2020 16:52
--- NOTE | 2020-01-20 14:10 | P.OP_ITS ---
Date of procedure: 01/20/20 Pre-op Diagnosis:: Left proximal ureteral stone, 7 mm Post-op Diagnosis:: 7 mm proximal left ureteral stone, distal left ureteral stricture Procedure performed:: Left ureteroscopy, dilation of left ureteral stricture, Holmium laser lithotripsy, stone extraction and left stent placement Surgeon:: Marcellus Mcclure MD [employer]:: Bernabe Costa Anesthesia: GETA Estimated blood loss (mL): 0 Clinical Note:: 64-year-old white male with history of 7 mm proximal left ureteral stone. Has been having increasing left stent colic and presents for urologic stone management. Operative findings:: 7 mm proximal left ureteral stone with distal left ureteral stricture Operative note:: Patient taken to the operating room after informed consent was obtained. He was placed on the operating table in the supine position and general anesthesia administered. There was a little difficulty with anesthesia as an LMA was planned but patient had some spit up and a dental intubation was performed. After the airway was protected the patient was placed into the dorsolithotomy position. Preoperative antibiotics and sequential compression devices were placed. He was prepped draped in the standard surgical fashion. The 22 Ed passed into the urethral meatus and into the bladder without difficulty. The bladder was examined in a systematic fashion and was within normal limits. Ureteral orifices in their normal anatomic position. Left ureteral orifice was cannulated with a 0.035 sensor wire and passed by the proximal stone into the renal pelvis without difficulty. The scope removed and then attempted to pass a navigator ureteral sheath over the guidewire but there was resistance distally and the sheath was removed. A 4 x 15 mm UroMax balloon dilator then used to dilate the distal left ureter. The balloon deflated and removed and the navigator sheath again attempted to be passed over the guidewire but it would not pass. I again dilated the left ureter with a UroMax balloon dilator more proximally. The ureter was dilated for 2 minutes and then deflated and removed. The navigator sheath again met resistance and would not pass more proximally. At this point the semirigid ureteroscope was again passed but there was a tortuous segment at the pelvic brim that the ureter could not traverse so the semirigid ureteroscope was removed and an 01/13 navigator ureteral sheath was passed over the guidewire without difficulty and our flexible ureteroscope then passed through the sheath and up to the level of the stone. Our 200 nm laser fiber was used to fragment the stone into small pieces. A 1.9 Kinyarwanda stone basket was then used to remove a couple of the stone fragments. The rest of the stones were small enough where they should pass without difficulty. The sheath and the extra wire were removed and our cystoscope was backloaded over the safety wire and a 6 x 26 Kinyarwanda stent was passed over the wire and the wire removed. The string was left on for later removal. There was a good curl noted proximally and distally on fluoroscopy. The string was taped to the penis. Patient tolerated procedure well no complications. We will send the stone for analysis. Condition: stable Disposition: PACU Specimens:: Kidney stone fragment Complications:: None
--- NOTE | 2020-01-21 09:33 | HMH.ANESII ---
[facility] Anesthesia Record Part II Discharge Time: 14:27 Destination: Surgical Day Care (OP Surgery) PACU nurse assessment reviewed?: Yes Patient Condition:: Good Anesthesia Complications:: None Swallowing reflex intact?: Yes Cyanosis?: No Blood Pressure: 142/90 Pulse Rate: 60 Temperature: 97.7 F Mental Status: Alert & Oriented Pain level:: 5 Nausea and/or vomitting:: None Intake, IV Amount: 50
[2020-01-21 09:34] VITALS: BP 142/90; PULSE 60; TEMP 36.5
[2020-02-12 06:32] LABS: Ca oxalate dihydrate 30%; Specimen Type LEFT URETER
[2020-02-12 06:33] LABS: Photo TO FOLLOW
== END 2020-01-20 15:00 | disposition home or self-care (01) ==
LOC: OR 10:02
PROVIDERS: PCP Family Medicine; Visit Provider Urology
PROC: (CPT 52352; principal; 2020-01-20 11:45)
DX: N20.1 Calculus of ureter (principal); Z85.46 Personal history of malignant neoplasm of prostate; Z85.01 Personal history of malignant neoplasm of esophagus; Z85.841 Personal history of malignant neoplasm of brain; E11.9 Type 2 diabetes mellitus without complications; E78.5 Hyperlipidemia, unspecified; I10 Essential (primary) hypertension; M19.90 Unspecified osteoarthritis, unspecified site; D64.9 Anemia, unspecified; Z79.899 Other long term (current) drug therapy
CPT/HCPCS: 50590; 76000; 82370; 82962; 96374; C2617; J0131; J2405

== ENCOUNTER → 2020-01-25 15:00 | Outpatient (CLI) | payer BC, MEDICARE, SELFPAY | PROVIDERS: Visit Provider Urology | DX: N39.0 Urinary tract infection, site not specified (principal) | CPT/HCPCS: 87086 ==

== ENCOUNTER 2020-03-05 17:10 | Emergency (ER) | payer BC, MEDICARE, SELFPAY ==
[2020-03-05 17:11] VITALS: BP 138/86; PULSE 79; RESP 18; TEMP 37.1; O2SAT 98; BMI 24.5
--- NOTE | 2020-03-05 17:24 | CT_ITS ---
PROCEDURE: CT HEAD/BRAIN WO CON CLINICAL INDICATION: metastatic cancer Confusion, history of brain cancer, recent surgery COMPARISON: CT CT HEAD/BRAIN W CON from 09/25/2019 TECHNIQUE: Axial images obtained. All CT scans at the facility use one or more dose reduction, viz: automated exposure control, ma/kV adjustment per patient size (including targeted exams where dose is matched to indication, i.e. head), or iterative reconstruction technique. FINDINGS: Status post right parietal 0 occipital craniotomy with resection of enhancing mass in the right occipital lobe. There is a extra-axial fluid collection in the occipital parietal region with some enhancement of the dura with a small amount of gas in the extra-axial fluid collection. The collection measures 15 mm in thickness and 55 mm in the length. Gas is present within this collection. This is immediately adjacent/deep to the craniotomy. There is some surrounding edema within the right parietal occipital region with some displacement of the posterior horn of the right lateral ventricle anteriorly. No midline shift is evident. Low-density changes are present in the periventricular area consistent with ischemic gliotic change from microvascular disease. IMPRESSION: 1. Interval resection of the right occipital mass with right parietal occipital craniotomy noted. 2. Extra-axial fluid collection in the operative bed with some enhancement of the margins and gas within the collection suspicious for postoperative subdural empyema. Edema is present in the right parietal occipital region with displacement of the posterior horn of the right lateral ventricle anteriorly. Dictated by: Ramin Chowdhury MD 03/06/2020 07:15 Ramin Chowdhury MD in [place] 03/06/2020 07:15
--- NOTE | 2020-03-05 17:25 | XR_ITS ---
PROCEDURE: XR CHEST PORTABLE CLINICAL HISTORY: fever History of esophageal cancer. COMPARISON: CT CT CHEST W CON from 10/16/2018 CR XR CHEST PORTABLE from 09/25/2019 CR XR CHEST 2V from 10/23/2019 FINDINGS: The cardiomediastinal silhouette and pulmonary vascularity are within normal limits. Consolidation is present in the right upper lobe consistent with pneumonia. Atelectatic or fibrotic changes are present in the left lung base. There is increased density in the retrocardiac region suggesting hiatal hernia. There is also prominence of the mediastinum which could be related adenopathy or direct spread esophageal carcinoma. No acute bony abnormalities. IMPRESSION: Right upper lobe pneumonia Hiatal hernia Mild widening of the mediastinum which could be related to adenopathy or direct spread of esophageal carcinoma. Chest CT with contrast may provide further evaluation. Dictated by: Ramin Chowdhury MD 03/06/2020 05:08 Ramin Chowdhury MD in [place] 03/06/2020 05:08
--- NOTE | 2020-03-05 17:26 | HMH.EDGENADL ---
ED Disposition Clinical Impression: Cranial epidural abscess Disposition: Xfer Short-Term Hosp Condition on Discharge: Fair Referrals: Diego Worthy MD [Primary Care Provider] - - Critical Care Critical Care Time: No Attestation: On , the high probability of a clinically significant, sudden or life threatening deterioration of the following system(s) required my full and direct attention, intervention and personal management. The time I documented below is in addition to time spent performing reported procedures but includes the following listed in this critical care notation. Medical Decision Making - Medical Records Medical records reviewed: Yes: I reviewed the patient's medical records. - Jose Inquiry Pt receiving controlled substance: No Vital Signs: 03/05/20 17:11 03/05/20 18:01 Temperature 98.7 F Temperature Source Oral Pulse Rate [Radial] 79 75 Respiratory Rate 18 18 Blood Pressure [Right Arm] 138/86 131/81 Blood Pressure Mean [Right Arm] 103 97 Blood Pressure Source [Right Arm] Automatic Cuff Blood Pressure Position [Right Arm] Sitting Supine 02 Sat by Pulse Oximetry 98 97 Oxygen Delivery Method Room Air - Lab Data Lab results reviewed: Yes: I reviewed the patient's lab results. Lab Results 03/05/20 17:20: WBC 5.3, RBC 5.72, Hgb 13.2 L, Hct 43.5, MCV 75.9 L, MCH 23.1 L, MCHC 30.4 L, RDW 23.1 H, Plt Count 214, MPV 8.6, Neut % (Auto) 72.2, Lymph % (Auto) 17.9, [place] % (Auto) 7.7, Eos % (Auto) 1.7, Baso % (Auto) 0.5, Neut # (Auto) 3.9, Lymph # (Auto) 1.0, [place] # (Auto) 0.4, Eos # (Auto) 0.1, Baso # (Auto) 0.0 03/05/20 17:20: Sodium 132 L, Potassium 4.1, Chloride 98, Carbon Dioxide 29, Anion Gap 9.1, BUN 12, Creatinine 0.90, Estimated Creat Clear 83, Estimated GFR 85, Est GFR ( Amer) 102, Glucose 217 H, Calcium 9.3, Total Bilirubin 1.0, AST 71 H, ALT 126 H, Alkaline Phosphatase 197 H, Total Protein 7.1, Albumin 4.0, Globulin 3.1, Albumin/Globulin Ratio 1.3 03/05/20 17:20: SARS-CoV-2 IgG Ab (Rapid) Negative, SARS-CoV-2 IgM Ab (Rapid) Negative Result diagrams: 03/05/20 17:20 03/05/20 17:20 Orders (Tests/Meds): ORDERS Category Date Time Status CT head/brain wo con Stat Cat Scan 03/05/20 17:24 Taken CXR --portable [XR chest portable] Stat Exams 03/05/20 17:25 Taken Lactic Acid Stat Lab 03/05/20 18:00 Received UA [Urinalysis and Microscopic] Stat Lab 03/05/20 17:25 Ordered Medical Decision Narrative: 64-year old male 3-week status post tumor debulking to the occipital lobe presenting with confusion and fever. Nontoxic, afebrile here, hemodynamically stable, nonfocal, neuro intact. White blood cell count electrolytes are nonactionable. CT of the head demonstrated a postsurgical epidural abscess. I spoke to [facility] neurosurgery who is familiar with the patient and they accepted transfer under Dr. Ocasio. He advised against antibiotics for now. General Adult HPI - General Stated complaint: Dizzyness, weakness, off balance, Time Seen by Provider: 03/05/20 17:26 - History of Present Illness HPI narrative: Is a 64-year-old male with a history of hypertension, prostate cancer, esophageal cancer with disease to the brain status post brain tumor debulking on February 09 at [facility] and with a 2-day history of confusion, fever and generalized weakness. Fever has been responsive to Tylenol. Patient also had a moderate headache that was responsive to Tylenol. No cough, shortness of breath, abdominal pain, urinary symptoms, diarrhea, constipation. - Related Data Home Medications Medication Instructions Recorded Confirmed oxycodone-acetaminophen 5 mg-325 1 tab PO DAILY PRN tab 10/29/19 01/25/20 mg tablet pantoprazole 40 mg tablet,delayed 40 mg PO DAILY 10/29/19 01/25/20 release Entrectinib [Rozlytrek] 400 mg PO DAILY 12/31/19 01/25/20 Ferrous Sulfate 65 mg PO TID 12/31/19 01/25/20 Insulin Aspart [Novolog Flexpen] 0 units SQ TID 12/03
[2020-03-05 17:36] LABS: Basophils % 0.5 % (0.1-2.0); Eosinophils # 0.1 K/mm3 (0.0-0.4); Eosinophils % 1.7 % (0.1-12.0); Hematocrit 43.5 % (42.0-52.0); Hemoglobin 13.2 g/dL (14.1-18.0); Lymphocytes % 17.9 % (10-50); Mean Corpuscular HGB Conc 30.4 g/dL (31.8-35.4); Mean Corpuscular Hemoglobin 23.1 pg (27.0-31.2); Mean Corpuscular Volume 75.9 fl (80-94); Mean Platelet Volume 8.6 fl (7.4-10.4); Monocytes # 0.4 K/mm3 (0.1-1.0); Monocytes % 7.7 % (1.7-9.3); Neutrophils # 3.9 K/mm3 (1.8-7.8); Neutrophils % 72.2 % (37.0-80.0); Platelet Count 214 K/mm3 (142-424); Red Blood Count 5.72 M/mm3 (4.60-6.20); Red Cell Distribution Width 23.1 % (11.5-17.5); White Blood Count 5.3 K/mm3 (4.8-10.8)
--- NOTE | 2020-03-05 17:36 | PC.NURSE ---
Radiology at bedside
[2020-03-05 17:41] LABS: Alanine Aminotransferase 126 U/L (12-78); Albumin/Globulin Ratio 1.3 (1.1-1.8); Alkaline Phosphatase 197 U/L (38-126); Anion Gap 9.1 mEq/L (5-15); Aspartate Amino Transferase 71 U/L (17-59); Blood Urea Nitrogen 12 mg/dl (9-20); Calcium 9.3 mg/dl (8.4-10.2); Carbon Dioxide 29 mmol/L (22.0-30.0); Chloride 98 mmol/L (98-107); Creatinine Clearance Estimated 83 mL/min (50-200); Estimated Glomerular Filt Rate 85 ml/min (>60); GFR (African American) 102 ML/MIN (>60); Globulin 3.1 g/dL (1.3-3.2); Glucose 217 mg/dl (74-100); Potassium 4.1 mmoL/L (3.5-5.1); Sodium 132 mmol/L (136-145); Total Protein,Serum 7.1 g/dl (6.3-8.2)
[2020-03-05 17:54] LABS: Coronavirus 19 IgG Antibody Negative (Negative); Coronavirus 19 IgM Antibody Negative (Negative)
[2020-03-05 18:01] VITALS: BP 131/81; PULSE 75; RESP 18; O2SAT 97
--- NOTE | 2020-03-05 18:10 | PC.NURSE ---
speaking with CASTILLO
--- NOTE | 2020-03-05 18:23 | PC.NURSE ---
[facility] called for pt transfer, Dr Weaver speaking with Dr Ocasio.
[2020-03-05 18:38] VITALS: BP 136/85; PULSE 74; RESP 18; O2SAT 97
--- NOTE | 2020-03-05 18:47 | PC.NURSE ---
REPORT CALLED TO [facility]
[2020-03-05 18:48] LABS: Lactic Acid 2.1 mmol/L (0.7-2.1)
[2020-03-05 19:00] VITALS: BP 132/74; PULSE 74; RESP 16; TEMP 36.6; O2SAT 98
== END 2020-03-05 19:01 | disposition short-term general hospital (02) ==
PROVIDERS: Emergency Provider Physician Assistant; PCP Family Medicine
DX: G06.0 Intracranial abscess and granuloma (principal); C15.9 Malignant neoplasm of esophagus, unspecified; C79.31 Secondary malignant neoplasm of brain; E11.65 Type 2 diabetes mellitus with hyperglycemia; Z87.442 Personal history of urinary calculi; Z79.899 Other long term (current) drug therapy; I10 Essential (primary) hypertension; E78.5 Hyperlipidemia, unspecified; Z01.84 Encounter for antibody response examination
CPT/HCPCS: 70450; 71045; 80053; 83605; 85025; 86328; 99284

== ENCOUNTER → 2020-04-03 13:53 | Outpatient (CLI) | payer BC, MEDICARE, SELFPAY ==
[2020-04-03 14:31] LABS: Vancomycin,Trough 18.6 ug/mL (5.0-10.0)
[2020-04-03 16:03] LABS: Basophils % 0.6 % (0.1-2.0); Eosinophils # 0.1 K/mm3 (0.0-0.4); Eosinophils % 2.2 % (0.1-12.0); Hematocrit 38.3 % (42.0-52.0); Hemoglobin 12.4 g/dL (14.1-18.0); Lymphocytes # 1.1 K/mm3 (0.7-4.5); Lymphocytes % 18.3 % (10-50); Mean Corpuscular HGB Conc 32.4 g/dL (31.8-35.4); Mean Corpuscular Hemoglobin 24.8 pg (27.0-31.2); Mean Corpuscular Volume 76.6 fl (80-94); Mean Platelet Volume 8.8 fl (7.4-10.4); Monocytes # 0.6 K/mm3 (0.1-1.0); Monocytes % 9.7 % (1.7-9.3); Neutrophils # 4.1 K/mm3 (1.8-7.8); Neutrophils % 69.3 % (37.0-80.0); Platelet Count 206 K/mm3 (142-424); Red Cell Distribution Width 19.8 % (11.5-17.5); White Blood Count 5.9 K/mm3 (4.8-10.8)
[2020-04-03 16:07] LABS: Blood Urea Nitrogen 8 mg/dl (9-20); Estimated Glomerular Filt Rate 167 ml/min (>60); GFR (African American) 202 ML/MIN (>60)
== END ==
PROVIDERS: Visit Provider Internal Medicine
DX: Z00.00 Encounter for general adult medical examination without abnormal findings (principal); C79.31 Secondary malignant neoplasm of brain
CPT/HCPCS: 80202; 82565; 84520; 85025

== ENCOUNTER → 2020-04-04 09:18 | Outpatient (CLI) | payer BC, MEDICARE, SELFPAY ==
[2020-04-04 13:52] LABS: Vancomycin,Trough 14.5 ug/mL (5.0-10.0)
== END ==
PROVIDERS: Visit Provider Internal Medicine
DX: Z51.81 Encounter for therapeutic drug level monitoring (principal); C79.31 Secondary malignant neoplasm of brain
CPT/HCPCS: 80202

== ENCOUNTER → 2020-04-11 11:49 | Outpatient (CLI) | payer BC, MEDICARE, SELFPAY ==
[2020-04-11 14:26] LABS: Blood Urea Nitrogen 7 mg/dl (9-20); Estimated Glomerular Filt Rate 135 ml/min (>60); GFR (African American) 164 ML/MIN (>60)
[2020-04-11 17:41] LABS: Vancomycin,Trough 16.4 ug/mL (5.0-10.0)
== END ==
PROVIDERS: Visit Provider Internal Medicine
DX: Z00.00 Encounter for general adult medical examination without abnormal findings (principal); C79.31 Secondary malignant neoplasm of brain; Z51.81 Encounter for therapeutic drug level monitoring
CPT/HCPCS: 80202; 82565; 84520

== ENCOUNTER → 2020-04-14 10:09 | Outpatient (CLI) | payer BC, MEDICARE, SELFPAY ==
[2020-04-14 14:00] LABS: Basophils # 0.1 K/mm3 (0-0.2); Basophils % 1.2 % (0.1-2.0); Eosinophils # 0.2 K/mm3 (0.0-0.4); Eosinophils % 3.6 % (0.1-12.0); Hematocrit 45.1 % (42.0-52.0); Hemoglobin 13.7 g/dL (14.1-18.0); Lymphocytes # 0.8 K/mm3 (0.7-4.5); Lymphocytes % 14.4 % (10-50); Mean Corpuscular HGB Conc 30.4 g/dL (31.8-35.4); Mean Corpuscular Hemoglobin 24.3 pg (27.0-31.2); Mean Platelet Volume 7.6 fl (7.4-10.4); Monocytes # 0.4 K/mm3 (0.1-1.0); Monocytes % 7.8 % (1.7-9.3); Neutrophils # 3.8 K/mm3 (1.8-7.8); Platelet Count 299 K/mm3 (142-424); Red Blood Count 5.63 M/mm3 (4.60-6.20); Red Cell Distribution Width 18.5 % (11.5-17.5); White Blood Count 5.2 K/mm3 (4.8-10.8)
[2020-04-14 14:06] LABS: Blood Urea Nitrogen 8 mg/dl (9-20); Estimated Glomerular Filt Rate 97 ml/min (>60); GFR (African American) 117 ML/MIN (>60)
[2020-04-14 14:13] LABS: Vancomycin,Trough 9.2 ug/mL (5.0-10.0)
== END ==
PROVIDERS: Visit Provider Internal Medicine
DX: C79.31 Secondary malignant neoplasm of brain (principal); Z51.81 Encounter for therapeutic drug level monitoring
CPT/HCPCS: 36415; 80202; 82565; 84520; 85025

== ENCOUNTER → 2020-04-17 10:03 | Outpatient (CLI) | payer BC, MEDICARE, SELFPAY ==
[2020-04-17 14:27] LABS: Blood Urea Nitrogen 8 mg/dl (9-20); Estimated Glomerular Filt Rate 85 ml/min (>60); GFR (African American) 102 ML/MIN (>60)
[2020-04-17 14:28] LABS: Vancomycin,Trough 12.3 ug/mL (5.0-10.0)
[2020-04-17 15:31] LABS: Basophils # 0.1 K/mm3 (0-0.2); Basophils % 0.8 % (0.1-2.0); Eosinophils # 0.3 K/mm3 (0.0-0.4); Eosinophils % 4.4 % (0.1-12.0); Hematocrit 42.2 % (42.0-52.0); Hemoglobin 13.4 g/dL (14.1-18.0); Lymphocytes % 16.4 % (10-50); Mean Corpuscular HGB Conc 31.8 g/dL (31.8-35.4); Mean Corpuscular Hemoglobin 25.3 pg (27.0-31.2); Mean Corpuscular Volume 79.5 fl (80-94); Mean Platelet Volume 9.5 fl (7.4-10.4); Monocytes # 0.6 K/mm3 (0.1-1.0); Monocytes % 10.3 % (1.7-9.3); Neutrophils % 68.2 % (37.0-80.0); Platelet Count 314 K/mm3 (142-424); Red Blood Count 5.31 M/mm3 (4.60-6.20); White Blood Count 5.9 K/mm3 (4.8-10.8)
== END ==
PROVIDERS: Visit Provider Internal Medicine
DX: C79.31 Secondary malignant neoplasm of brain (principal); Z51.81 Encounter for therapeutic drug level monitoring
CPT/HCPCS: 36415; 80202; 82565; 84520; 85025

== ENCOUNTER 2020-06-14 13:55 | Emergency (ER) | payer BC, MEDICARE, SELFPAY ==
[2020-06-14] VITALS (24 sets, daily range): BP systolic 63–132; BP diastolic 37–93; PULSE 89–103; RESP 16–27; TEMP 35.9–36.7; O2SAT 92–100; BMI 22.9
--- NOTE | 2020-06-14 13:50 | ECG_ITS ---
APPROVED REPORT Exam: Resting ECG HR:107 bpm ECG Measurements Heart Rate 107 AXES AR 118 P 56 QRSd 72 QRS -33 QT 324 T 90 QTc 432 Conclusion Sinus tachycardia Possible Left atrial enlargement Left axis deviation Cannot rule out Anteroseptal infarct, age undetermined Abnormal ECG Electronically signed by : Bernabe Espinoza, 06/15/2020 13:56:11
--- NOTE | 2020-06-14 13:58 | HMH.EDGENADL ---
ED Disposition Clinical Impression: Septic shock Fall Qualifiers: Encounter type: initial encounter Qualified Code(s): W19.XXXA - Unspecified fall, initial encounter Disposition: Xfer Short-Term Hosp Condition on Discharge: Fair Referrals: Diego Worthy MD [Primary Care Provider] - Time of Disposition: 17:34 - Critical Care Critical Care Time: Yes Attestation: On , the high probability of a clinically significant, sudden or life threatening deterioration of the following system(s) required my full and direct attention, intervention and personal management. The time I documented below is in addition to time spent performing reported procedures but includes the following listed in this critical care notation. Total Critical Care Time: 65 Vital system(s) involved:: Shock (Septic) My critical care processes included: Assessment & monitoring of V/S, Initial and Re-exams, Data Review/Interpretation, Coordinating Care, Medication Orders and management, Documentation Medical Decision Making - Medical Records Medical records reviewed: Yes: I reviewed the patient's medical records. - Jose Inquiry Pt receiving controlled substance: No Vital Signs: 06/14/20 13:56 06/14/20 14:24 06/14/20 14:50 Temperature 96.7 F L Temperature Source Oral Pulse Rate 96 H 98 H Pulse Rate [Right] 101 H Respiratory Rate 18 22 17 Blood Pressure 67/44 L 63/48 L Blood Pressure [Right Arm] 97/70 L Blood Pressure Mean [Right Arm] 79 Blood Pressure Source Automatic Cuff Blood Pressure Position Sitting 02 Sat by Pulse Oximetry 93 L 97 93 L Oxygen Delivery Method Nasal Cannula Nasal Cannula Oxygen Flow Rate (LPM) 3 2 06/14/20 14:52 06/14/20 14:57 06/14/20 15:03 Temperature Temperature Source Pulse Rate 98 H 96 H 92 H Pulse Rate [Right] Respiratory Rate 19 20 22 Blood Pressure 77/53 L 74/37 L 64/45 L Blood Pressure [Right Arm] Blood Pressure Mean [Right Arm] Blood Pressure Source Blood Pressure Position 02 Sat by Pulse Oximetry 94 L 98 Oxygen Delivery Method Nasal Cannula Oxygen Flow Rate (LPM) 3 06/14/20 15:13 06/14/20 15:16 06/14/20 15:18 Temperature Temperature Source Pulse Rate 89 93 H 92 H Pulse Rate [Right] Respiratory Rate 22 22 20 Blood Pressure 69/46 L 79/50 L 76/52 L Blood Pressure [Right Arm] Blood Pressure Mean [Right Arm] Blood Pressure Source Blood Pressure Position 02 Sat by Pulse Oximetry 99 99 99 Oxygen Delivery Method Nasal Cannula Nasal Cannula Oxygen Flow Rate (LPM) 2 2 06/14/20 15:20 06/14/20 15:27 06/14/20 15:29 Temperature Temperature Source Pulse Rate 89 103 H 100 H Pulse Rate [Right] Respiratory Rate 22 27 H 21 Blood Pressure 75/47 L 126/87 106/70 L Blood Pressure [Right Arm] Blood Pressure Mean [Right Arm] Blood Pressure Source Blood Pressure Position 02 Sat by Pulse Oximetry 100 98 97 Oxygen Delivery Method Nasal Cannula Oxygen Flow Rate (LPM) 2 06/14/20 15:40 06/14/20 16:05 06/14/20 16:10 Temperature Temperature Source Pulse Rate 98 H 100 H 98 H Pulse Rate [Right] Respiratory Rate 21 17 22 Blood Pressure 116/82 128/89 132/92 H Blood Pressure [Right Arm] Blood Pressure Mean [Right Arm] Blood Pressure Source Blood Pressure Position 02 Sat by Pulse Oximetry 97 92 L 95 Oxygen Delivery Method Oxygen Flow Rate (LPM) - Lab Data Lab results reviewed: Yes: I reviewed the patient's lab results. Lab Results 06/14/20 14:15: WBC 16.6 H, RBC 6.56 H, Hgb 17.2, Hct 54.2 H, MCV 82.7, MCH 26.3 L, MCHC 31.8, RDW 17.4, Plt Count 100 L, MPV 10.8 H, Neut % (Auto) 93.9 H, Lymph % (Auto) 2.0 L, Tyrrell % (Auto) 3.6, Eos % (Auto) 0.2, Baso % (Auto) 0.4, Neut # (Auto) 15.6 H, Lymph # (Auto) 0.3 L, Tyrrell # (Auto) 0.6, Eos # (Auto) 0.0, Baso # (Auto) 0.1, Total Counted 100, Neutrophils % (Manual) 78 H, Lymphocytes % (Manual) 2 L, Monocytes % (Manual) 19 H, Metamyelocytes % 1.0, Platelet
--- NOTE | 2020-06-14 14:03 | CT_ITS ---
PROCEDURE: CT HEAD/BRAIN WO CON CLINICAL INDICATION: headache Fall with headache, history of brain tumor. On blood thinners COMPARISON: CT CT HEAD/BRAIN W CON from 09/25/[address] HEAD/BRAIN WO CON from 09/25/[address] HEAD/BRAIN WO CON from 03/05/2020 TECHNIQUE: Axial images obtained. All CT scans at the facility use one or more dose reduction, viz: automated exposure control, ma/kV adjustment per patient size (including targeted exams where dose is matched to indication, i.e. head), or iterative reconstruction technique. FINDINGS: No midline shift or mass effect is evident. Craniectomy has been performed in the right occipital region. Previously noted lentiform fluid collection with internal gas is no longer apparent. There are encephalomalacia changes present in the right occipital lobe and parietal occipital region. Central low-density changes are present in the left cerebellar hemisphere. This has developed since the previous exam of 03/05/2020 and could be due to an area of ischemia age indeterminate. An underlying space-occupying lesion is included in the differential diagnosis in this patient with history of a brain tumor. Consider follow-up exam with contrast or MRI for further evaluation. There is no midline shift. Low-density changes are present in the periventricular region consistent with microangiopathic changes. No mastoid effusion or sinus air-fluid level. IMPRESSION: 1. Interval right parietal occipital craniectomy. Subdural empyema no longer apparent. Encephalomalacia changes are present in the right parieto-occipital region. 2. Low-density changes in the left cerebellar hemisphere. Ischemic change age indeterminate or underlying space-occupying lesion is a consideration. Consider enhanced head CT or MRI without and with enhancement for further evaluation. Would also suggest correlation with most previous outside exams or the reports if available Dictated by: Ramin Chowdhury MD 06/14/2020 16:22 Ramin Chowdhury MD in [facility] 06/14/2020 16:22
--- NOTE | 2020-06-14 14:22 | PC.NURSE ---
PATIENT C/O NECK PAIN BUT REFUSED C COLAR AT THIS TIME
[2020-06-14 14:30] LABS: Basophils # 0.1 K/mm3 (0-0.2); Basophils % 0.4 % (0.1-2.0); Eosinophils % 0.2 % (0.1-12.0); Hematocrit 54.2 % (42.0-52.0); Hemoglobin 17.2 g/dL (14.1-18.0); Lymphocytes # 0.3 K/mm3 (0.7-4.5); Mean Corpuscular HGB Conc 31.8 g/dL (31.8-35.4); Mean Corpuscular Hemoglobin 26.3 pg (27.0-31.2); Mean Corpuscular Volume 82.7 fl (80-94); Mean Platelet Volume 10.8 fl (7.4-10.4); Monocytes # 0.6 K/mm3 (0.1-1.0); Monocytes % 3.6 % (1.7-9.3); Neutrophils # 15.6 K/mm3 (1.8-7.8); Neutrophils % 93.9 % (37.0-80.0); Platelet Count 100 K/mm3 (142-424); Red Blood Count 6.56 M/mm3 (4.60-6.20); Red Cell Distribution Width 17.4 % (11.5-17.5); White Blood Count 16.6 K/mm3 (4.8-10.8)
[2020-06-14 14:35] LABS: Chloride 103 mmol/L (98-107); Sodium 142 mmol/L (136-145)
--- NOTE | 2020-06-14 14:35 | XR_ITS ---
PROCEDURE: XR CHEST PORTABLE CLINICAL HISTORY: sob Shortness of breath COMPARISON: CT CT CHEST W CON from 10/16/2018 CR XR CHEST PORTABLE from 09/25/2019 CR XR CHEST 2V from 10/23/2019 CR XR CHEST PORTABLE from 03/05/2020 FINDINGS: Normal heart size. Mediastinum is prominent suspicious for adenopathy in this patient with a history esophageal mass. CT chest with contrast may confirm. There is a mass present in the right lower lobe at 6.7 x 3.7 cm and has developed since 03/05/2020. Neoplasm is considered. The margins are fairly well-circumscribed superiorly. Chest CT with contrast suggested for further evaluation. No acute bony abnormalities. IMPRESSION: 1. Widening of the mediastinum which may be due to adenopathy or mediastinal lipomatosis 2. 6.7 cm right lower lobe mass. Neoplasm is considered. Differential diagnosis would include fluid within the fissure or masslike area of consolidation. Chest CT with contrast suggested for further evaluation. Dictated by: Ramin Chowdhury MD 06/14/2020 16:48 Ramin Chowdhury MD in [facility] 06/14/2020 16:48
--- NOTE | 2020-06-14 14:35 | CT_ITS ---
PROCEDURE: CT CERVICAL SPINE WO CON CLINICAL INDICATION: fall Posttraumatic pain, Neck injury with pain, contusion/abrasion or hematoma, cervical sprain/strain the COMPARISON: No exams were available for comparison TECHNIQUE: Axial images obtained with sagittal and coronal reformats. All CT scans at the facility use one or more dose reduction, viz: automated exposure control, ma/kV adjustment per patient size (including targeted exams where dose is matched to indication, i.e. head), or iterative reconstruction technique. Axial spiral CT scanning performed of the cervical spine beginning at the base of the skull and continuing to the upper T-spine. 3-D multiplanar reconstruction with 3-D manipulation of volumetric data set in image rendering was completed by the radiologist and/or technologist with the supervision of the radiologist on independent workstation. FINDINGS: There is normal alignment. No fracture or dislocation is evident. Small Schmorl's node is present along the inferior endplate of C2 on the right. Multilevel cervical spondylosis is present. There is degenerative disc disease with canal stenosis at C5-C6 with mild bilateral lateral recess and foraminal narrowing. Lung apices are clear. Frothy mucus or secretions noted within the upper esophagus. Secretions are also present within the left hypopharynx. IMPRESSION: No acute fracture. Cervical spondylosis. Dictated by: Ramin Chowdhury MD 06/14/2020 16:35 Ramin Chowdhury MD in [facility] 06/14/2020 16:35
[2020-06-14 14:36] LABS: MANUAL DIFFERENTIAL MANUAL DIFFERENTIAL (MANUAL DIFF); Potassium 3.8 mmoL/L (3.5-5.1)
[2020-06-14 14:39] LABS: Anion Gap 24.8 mEq/L (5-15); Blood Urea Nitrogen 14 mg/dl (9-20); Calcium 9.3 mg/dl (8.4-10.2); Carbon Dioxide 18 mmol/L (22.0-30.0); Creatinine Clearance Estimated 62 mL/min (50-200); Estimated Glomerular Filt Rate 61 ml/min (>60); GFR (African American) 73 ML/MIN (>60); Glucose 188 mg/dl (74-100)
[2020-06-14 14:56] LABS: Alanine Aminotransferase 150 U/L (12-78); Aspartate Amino Transferase 77 U/L (17-59)
[2020-06-14 14:57] LABS: Albumin Level 3.3 g/dl (3.5-5.0); Alkaline Phosphatase 275 U/L (38-126); Bilirubin,Direct 0.5 mg/dl (0.0-0.4); Bilirubin,Indirect 1.1 mg/dL (0.0-0.9); Bilirubin,Total 1.6 mg/dl (0.2-1.3); Total Protein,Serum 5.6 g/dl (6.3-8.2)
[2020-06-14 15:34] LABS: Lymphocytes % 2 % (10-50); Monocytes % 19 % (2-9); Neutrophils % 78 % (42-76); Platelet Estimate Slight Decrease; RBC Morphology Normal; Total Cells Counted 100
--- NOTE | 2020-06-14 15:58 | PC.NURSE ---
pt with rad.
--- NOTE | 2020-06-14 16:05 | PC.NURSE ---
attempting to get medical records from [facility] per family request at this time.
--- NOTE | 2020-06-14 16:24 | PC.NURSE ---
release of information paper sent to [facility].
--- NOTE | 2020-06-14 16:30 | PC.NURSE ---
lab at bedside collecting cultures.
[2020-06-14 17:11] LABS: Adenovirus,PCR Not Detected (NotDetected); Bordetella Pertussis Not Detected (NotDetected); Chlamydophila Pneumoniae, PCR Not Detected (NotDetected); Coronavirus 19, PCR Not Detected (NotDetected); Coronavirus 229E Not Detected (NotDetected); Coronavirus NL63 Not Detected (NotDetected); Coronavirus OC43 Not Detected (NotDetected); Coronovirus HKU1,PCR Not Detected (NotDetected); Human Metapneumovirus Not Detected (NotDetected); Influenza A, PCR Not Detected (NotDetected); Influenza AH1, 2009 Not Detected (NotDetected); Influenza AH1, PCR Not Detected (NotDetected); Influenza AH3,PCR Not Detected (NotDetected); Influenza B, PCR Not Detected (NotDetected); Mycoplasma Pneumoniae, PCR Not Detected (NotDetected); Parainfluenza 1, PCR Not Detected (NotDetected); Parainfluenza 2, PCR Not Detected (NotDetected); Parainfluenza 3, PCR Not Detected (NotDetected); Parainfluenza 4, PCR Not Detected (NotDetected); Respiratory Syncytial Virus Not Detected (NotDetected); Rhinovirus/Enterovirus Not Detected (NotDetected)
[2020-06-14 17:14] LABS: Lactic Acid 6.6 mmol/L (0.7-2.1)
--- NOTE | 2020-06-14 17:15 | PC.NURSE ---
NOTIFIED OF CRITICAL LACTIC ACID
--- NOTE | 2020-06-14 17:42 | PC.NURSE ---
ATTEMPTED TO CALL REPORT TO [facility] AND THEY STATED THEY WILL CALL CRYSTAL BETTENCOURT BACK REPORT
--- NOTE | 2020-06-14 18:06 | PC.NURSE ---
CALLED ED FOR THE SECOND TIME. UNABLE TO GIVE REPORT AT THIS TIME. CRISTY BETTENCOURT REPORTED TO CRYSTAL BETTENCOURT THAT A CALL BACK WILL BE MADE FOR PATIENTS NEW PLACEMENT. EMS IN ED AT THIS TIME READY TO LEAVE WITH PATIENT
--- NOTE | 2020-06-14 18:31 | PC.NURSE ---
CALLED ED AGAIN. CRISTY BETTENCOURT REPORTED TO CRYSTAL BETTENCOURT THAT THE PATIENT IS GOING TO ICU NOW AND WILL BE CALLED BACK WITH A ROOM ASSIGNMENT
--- NOTE | 2020-06-14 19:06 | PC.NURSE ---
ON HOLD TO GIVE REPORT TO [facility] ICU NURSE. DANIELLE FROM ICU STATED, IT IS SHIFT CHANGE. NO ONE CAN TAKE REPORT AT THIS TIME. WE CAN CALL YOU BACK OR REMAIN ON HOLD. CRYSTAL BETTENCOURT AGREED TO REMAIN ON HOLD AT THIS TIME TO GIVE REPORT. EMS CONTINUES TO WAIT IN [facility] ED TO TRANSFER PATIENT TO [facility] ICU.
--- NOTE | 2020-06-14 19:11 | PC.NURSE ---
DANIELLE FROM ICU STATED, THE RECEIVING NURSE IS NOT READY TO TAKE REPORT FOR PATIENT. THE NURSE WILL CALL YOU BACK. CRYSTAL BETTENCOURT INSISTED TO GIVE REPORT TO ICU CHARGE NURSE BUT WAS DECLINED THAT OPTION
--- NOTE | 2020-06-14 19:26 | PC.NURSE ---
GAVE REPORT TO GILA BETTENCOURT ICU NURSE AT THIS TIME
== END 2020-06-14 19:30 | disposition short-term general hospital (02) ==
PROVIDERS: Emergency Provider Family Medicine; PCP Family Medicine
DX: A41.9 Sepsis, unspecified organism (principal); R51.9 Headache, unspecified; E11.9 Type 2 diabetes mellitus without complications; I10 Essential (primary) hypertension; E78.5 Hyperlipidemia, unspecified; Z87.442 Personal history of urinary calculi; W01.0XXA Fall on same level from slipping, tripping and stumbling without subsequent striking against object, initial encounter; Y92.019 Unspecified place in single-family (private) house as the place of occurrence of the external cause; Z79.899 Other long term (current) drug therapy
CPT/HCPCS: 36415; 70450; 71045; 72125; 80048; 80076; 83605; 85007; 85025; 87040; 87581; 87633; 87798; 93005; 99283; J3370